=== PATIENT | male | born 1945 | race Caucasian/White ===

== ENCOUNTER 2018-09-08 18:29 | Inpatient (IN) | payer MEDICARE ==
[~2018-09-08] VITALS: Ht 175.3 cm; Wt 95.1 kg
[~2018-09-08 18:29] MED LIST: ASPI81CH PO; CALCA400CH PO; CALCIUM + D SO1 EACH PO; FURO20 PO; GLIP5 PO; Glucosamine H1500 MG PO; HYDCHL25 PO; METO50 PO; PANT40 PO; POTA10T PO; PROBIOTIC & AC1 EACH PO; SILD50TA PO; SIMV40 PO; UBID100 PO; VALS80 PO
[2018-09-08 19:59] LABS: BASOPHILS ABSOLUTE AUTO 0.06 K/mm3 (0.00-0.23); BASOPHILS PERCENT AUTO 1 % (0-2); EOSINOPHILS ABSOLUTE AUTO 0.22 K/mm3 (0.00-0.68); EOSINOPHILS PERCENT AUTO 3 % (0-6); Hematocrit 38.9 % (37.0-53.0); IMMATURE GRAN ABSOLUTE AUTO 0.02 K/mm3 (0.00-0.10); IMMATURE GRAN PERCENT AUTO 0 % (0-1); LYMPHOCYTES ABSOLUTE AUTO 1.46 K/mm3 (0.84-5.20); LYMPHOCYTES PERCENT AUTO 19 % (21-46); MONOCYTES ABSOLUTE AUTO 0.67 K/mm3 (0.16-1.47); MONOCYTES PERCENT AUTO 9 % (4-13); Mean Corpuscular HGB 29.9 pg (26.0-34.0); Mean Corpuscular HGB Conc 30.8 g/dL (31.5-36.5); Mean Platelet Volume 9.5 fL (9.1-12.4); NEUTROPHILS ABSOLUTE AUTO 5.34 K/mm3 (1.96-9.15); NEUTROPHILS PERCENT AUTO 69 % (41-73); Platelet Count 220 K/mm3 (150-400); RDW Coefficient Variation 13.5 % (11.7-14.2); RDW Standard Deviation 47.8 fL (35.1-46.3); Red Blood Cell Count 4.02 M/mm3 (4.30-5.90); White Blood Cell Count 7.77 K/mm3 (4.00-11.30)
[2018-09-08 20:02] LABS: Mean Corpuscular Volume 97 fL (80-100)
[2018-09-08 20:24] LABS: Alanine Aminotransfer (ALT/SGP 29 U/L (12-78); Albumin, Blood 3.4 g/dL (3.4-5.0); Alk Phos 85 U/L (50-136); Anion Gap 5 mmol/L (6-16); Aspartate Aminotrans (AST/SGOT 18 U/L (12-37); Bilirubin, Total 0.4 mg/dL (0.1-1.0); Blood Urea Nitrogen 14 mg/dL (8-24); Bun/Creatinine Ratio 11.2 (12.0-20.0); CO2, Blood 28 mmol/L (21-32); Calcium, Blood 8.7 mg/dL (8.5-10.1); Chloride, Blood 109 mmol/L (98-108); Creatinine, Blood 1.25 mg/dL (0.60-1.20); Globulin, Blood 3.5 g/dL (2.2-4.0); Glomerular Filtration Rate >60 (60-); Glucose, Blood 151 mg/dL (70-99); Potassium, Blood 4.2 mmol/L (3.5-5.5); Sodium, Blood 142 mmol/L (136-145); Total Protein, Blood 6.9 g/dL (6.4-8.2); Troponin I 0.107 ng/mL (0.000-0.040)
[2018-09-08] MEDS ORDERED: ELIQUIS2.5 MG PO (23:39)
[2018-09-08] MEDS ORDERED: ASPI325 PO (23:39)
[2018-09-08] MEDS ORDERED: OXYC5 PO (23:40)
[2018-09-08] MEDS ORDERED: Acidophilus La100 GM PO (23:41)
[2018-09-08] MEDS ORDERED: CALCIUM 600 +1 EAC1 PO (23:43)
[2018-09-08] MEDS ORDERED: Coq-10100 MG PO (23:43)
[2018-09-08] MEDS ORDERED: CALCIUM 500 +1 EAC2 PO (23:43)
[2018-09-08] MEDS ORDERED: GLUC500 PO (23:44)
[2018-09-09] MEDS ORDERED: GLIP5 PO (00:45)
--- NOTE | 2018-09-09 01:20 | NUR ---
Admission: Patient arrived to unit via stretcher, accompanied by ED nurse. Stood and transferred to bed without difficulty. Patient denies pain, discomfort, SOB, or dyspnea. A/O x4 VSS, O2- 95-98% on RA, heart rhythm shows 100% atrial pacing, rate-60. Patient was not able to tolerate lying flat, quickly became SOB, but also very quickly resolved when HOB elevated. Lungs sounds clear, 1-2+ edema noted in BLE. Spoke with Dr. Donnelly at this time, received order of one time dose of Lasix 20mg now. Call light in reach, instructed to not get out of bed without assistance. Peripheral IV to rt AC patent and intact. 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 Will continue to monitor for pain, comfort, safety.
--- NOTE | 2018-09-09 06:07 | NUR ---
Shift Summary: Patient slept well throughout shift, easily roused to verbal stimuli. Continues to deny pain, discomfort, SOB or dyspnea throughout shift. VSS, O2- 95-98% on RA. Heart rhythm showed a variety of Afibb, atrial pacing, ventricle pacing, and atrial/ventricle pacing. HR ranging from 60-90's. Voiding using urinal in bed without difficulty. Sleeping at this time, appears comfortable. Will continue to monitor until report to day shift RN.
[2018-09-09 08:19] LABS: Hematocrit 37.5 % (37.0-53.0); Hemoglobin 11.4 g/dL (13.5-17.5); Mean Corpuscular HGB 29.4 pg (26.0-34.0); Mean Corpuscular HGB Conc 30.4 g/dL (31.5-36.5); Mean Corpuscular Volume 97 fL (80-100); Mean Platelet Volume 9.7 fL (9.1-12.4); Platelet Count 187 K/mm3 (150-400); RDW Coefficient Variation 13.7 % (11.7-14.2); RDW Standard Deviation 47.6 fL (35.1-46.3); Red Blood Cell Count 3.88 M/mm3 (4.30-5.90); White Blood Cell Count 5.99 K/mm3 (4.00-11.30)
[2018-09-09 08:32] LABS: Calcium, Blood 8.5 mg/dL (8.5-10.1); Creatinine, Blood 1.4 mg/dL (0.60-1.20); Magnesium, Blood 2.4 mg/dL (1.6-2.4)
--- NOTE | 2018-09-09 09:34 | NUR ---
Recieved report from Jose PERDOMO. Patient was sleeping and was letting him rest. He is on RA and sats upper 90%. He has 20ga IV in RAC and dressing intact and site WNL's and i flushed and SL.
--- NOTE | 2018-09-09 09:37 | NUR ---
He awakened by lab and assessed patient. He tolerated breakfast 100% and continues on RA and VSS. Called [facility] and got name of brand pacer and will get interogated send results to [facility] as well. Echo in room currently doing procedure. He is alert and oriented and is good historian and states he just has been feeling tired and has overdone exertion several times with poor recovery. Physical therapy has been in room already and feel that he would benifet from [facility] cardiac therapy.
--- NOTE | 2018-09-09 11:05 | NUR ---
Echocardiogram completed.
--- NOTE | 2018-09-09 11:30 | NUR ---
Patients echo done. Pacer interogated, copy inchart and sent to [facility]. Notified Dr Singer that patient was in afib from [id number] per pacer rep. VSS. States he has been feeling fine all moprning. [facility] and they are not able to get hin in any sooner. Palliative care working on ther resouirces (Priscilla RN) which is in room currently. He is currently tolerating lunch currently. He denies any pain, SOB on RA or any other current needs.
--- NOTE | 2018-09-09 13:30 | NUR ---
No significant changes with patient. Called cardiology consult in to Dr Mijares Office. Patient has friends in room with him. He remains on RA and denies and pain or breathing difficulties. VSS.
--- NOTE | 2018-09-09 14:50 | NUR ---
Pt seen for plan of care. NO POLST or AD on file. FAX sent to [place] for POLST?AD and POA. Pt alert but anxious review of the eight domains of care with pt. He is stable financially has a partner in life that cares for him. He goes to gold team at [facility] for care. He needs a new pressure washer. PT review of systems. Pt has been having increased chronic headaches related to his tinnitus. He states it keeps him awake and effects his sleep. Pt states just before his cardiac care he went to dentist for a broken tooth on the upper right. The tooth was not fixable and was difficult to remove. Since the procedure he has lost more hearing on the right and some nerve pain to upper right face. She was scheduled to go to [facility] for MRI and to see if they could reduce his tinnitus and get him hearing aids that would help. He has displayed some significant stress from the hearing issues. He has had some episodes of nose running. He denies falls. He has taken CBD oil briefly in the past and some over the counter meds for his ears. He does not drink or smoke. pt state he has had trouble sleeping that he is having vivid dreams and they starle him awake. This has been going on since his surgery. He does not wear a bipap and denies snoring. He denies balance issue. but compains if dizziness and weakness wehn changing sfrom sitting to standing. He states he has had frequent changes to heis diuretic and cardiac meds. he denie nausea, appetite is minimal. He has some rare minimal constipation, no difficulty voiding. He has chronic low back pain and whith certain movement feels popping in his low back. He has had his back symptoms for quite some time. Review of social stress. He was tearfull his brother is dying of cancer and he wishes he could see him. He expressed significant grief. He has minimal relationships with his family he has a few ex wives. 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 We reviewed sleep hygiene, stress reduction and diversion. We reviewed non pharmacological care for pain and sleep. We reviewed funcation and care of the heart lungs and kidney function and fluid balance. review of fall precausions and balance. review with nursing. Pt states he has not had any CHF teaching. suggest homePT and CHF care we reviewed daily weights. pt on wait list for cardiac rehab. pt [facility] risk for readmission. Pt high risk for balance issue and injury due to hearing loss. Will update adult protective caseworker.
--- NOTE | 2018-09-09 14:53 | NUR ---
In person report to Kerri PERDOMO. Called family contact and Dr Horton and notified of room change. Took all personal belongings to room 312 prior to transfer and when occupational therapy done will take to room in wheelchair. Dr Newton in room with patien as he just arrived.
--- NOTE | 2018-09-09 17:37 | NUR ---
SHIFT SUMMARY PT XFER'D FROM ICU JUST BEFORE DINNER. WAS UNABLE TO TITRATE OFF OF O2, SATS 84 ON RA, 3L 02 VIA NC PLACED BACK ON WHEN XFERED TO FLOOR. PT HAS HAD NO ACUTE CHANGES, NO COMPLAINTS SINCE ASSUMING CARE, AT BEDSIDE, WILL CONT TO MONITOR UNTIL REPORT GIVEN TO NOC RN.
--- NOTE | 2018-09-09 17:41 | NUR ---
SHIFT SUMMARY PT WAS ICU XFER THIS SHIFT, REC REPORT FROM LEANNE CAZARES. PT HAS HAD NO ACUTE CHANGES SINCE ASSUMING CARE, NO COMPLAINTS OF ANY KIND. WILL CONT TO MONITOR UNTIL REPORT GIVEN TO SELAM PERDOMO.
--- NOTE | 2018-09-10 04:34 | NUR ---
SHIFT SUMMARY PT A&OX4. REPORTS MILD HEADACHE EARLY IN THE SHIFT. PAIN MEDS WAS GIVEN ANOTHER RN. DENIES N/V, CHEST PAIN, AND SOB. RESTED WELL. USED URINAL TO VOID. ENCOURAGED PT TO TURN AND REPOSITION SELF OFTEN WHILE IN BED. NO OTHER COMPLAINTS. WILL CONTINUE TO MONITOR.
[2018-09-10 04:54] LABS: BASOPHILS ABSOLUTE AUTO 0.08 K/mm3 (0.00-0.23); BASOPHILS PERCENT AUTO 1 % (0-2); EOSINOPHILS ABSOLUTE AUTO 0.24 K/mm3 (0.00-0.68); EOSINOPHILS PERCENT AUTO 4 % (0-6); Hematocrit 37.2 % (37.0-53.0); Hemoglobin 11.6 g/dL (13.5-17.5); IMMATURE GRAN ABSOLUTE AUTO 0.02 K/mm3 (0.00-0.10); IMMATURE GRAN PERCENT AUTO 0 % (0-1); LYMPHOCYTES ABSOLUTE AUTO 1.79 K/mm3 (0.84-5.20); LYMPHOCYTES PERCENT AUTO 27 % (21-46); MONOCYTES ABSOLUTE AUTO 0.58 K/mm3 (0.16-1.47); MONOCYTES PERCENT AUTO 9 % (4-13); Mean Corpuscular HGB 29.7 pg (26.0-34.0); Mean Corpuscular HGB Conc 31.2 g/dL (31.5-36.5); Mean Corpuscular Volume 95 fL (80-100); Mean Platelet Volume 9.6 fL (9.1-12.4); NEUTROPHILS ABSOLUTE AUTO 3.82 K/mm3 (1.96-9.15); NEUTROPHILS PERCENT AUTO 59 % (41-73); Platelet Count 173 K/mm3 (150-400); RDW Coefficient Variation 13.4 % (11.7-14.2); RDW Standard Deviation 46.7 fL (35.1-46.3); Red Blood Cell Count 3.91 M/mm3 (4.30-5.90); White Blood Cell Count 6.53 K/mm3 (4.00-11.30)
[2018-09-10 05:19] LABS: Anion Gap 5 mmol/L (6-16); Blood Urea Nitrogen 17 mg/dL (8-24); Bun/Creatinine Ratio 13.6 (12.0-20.0); CO2, Blood 28 mmol/L (21-32); Chloride, Blood 108 mmol/L (98-108); Creatinine, Blood 1.25 mg/dL (0.60-1.20); Glomerular Filtration Rate >60 (60-); Glucose, Blood 112 mg/dL (70-99); Potassium, Blood 3.9 mmol/L (3.5-5.5); Sodium, Blood 141 mmol/L (136-145)
--- NOTE | 2018-09-10 06:56 | NUR ---
PER SPOT WELDER MAXINE, PT HAD 6-7 RUNS OF PVC AT AROUND 0420 AND THEN 15-18 RUNS PER MINUTE. NOTIFIED DR. REINA. ORDERED MAGNESIUM TO BE CHECKED. PT WAS ASYMPTOMATIC. DENIES CP, SOB, AND N/V.
[2018-09-10 09:50] LABS: Magnesium, Blood 2.4 mg/dL (1.6-2.4)
[2018-09-10] MEDS ORDERED: FURO40 PO (13:04)
[2018-09-10] MEDS ORDERED: ACET325 PO (13:04)
[2018-09-10] MEDS ORDERED: METO50ER PO (13:05)
[2018-09-10] MEDS ORDERED: ONDA4ODT MM (13:06)
--- NOTE | 2018-09-10 15:43 | NUR ---
SHIFT SUMMARY/DC PT HAS HAD NO ACUTE CHANGES THIS SHIFT, NO COMPLAINTS OF ANY KIND. REVIEWED DC INSTRUCTIONS, PT VERBALIZED UNDERSTANDING. [facility] FOR REFERRLS. PT TRANSPORTED VIA W/C TO [facility] IN PRIVATE VEHICLE @ 1136.
== END 2018-09-10 14:57 | disposition home health service (06) | DRG 641 ==
LOC: ER 18:29 → MEDS 23:30 → ICUW 23:30 → ER 09-09 00:06 → ICUE 09-09 00:20 → MEDS 09-09 15:59 → ENPENDDIS 09-10 12:00 → MEDS 09-10 14:57
PROVIDERS: Emergency Medicine; Family Medicine; Nurse Practitioner Acute Care; ADMIT Family Medicine
DX: E87.70 Fluid overload, unspecified (principal); I10 Essential (primary) hypertension; E11.9 Type 2 diabetes mellitus without complications; K21.9 Gastro-esophageal reflux disease without esophagitis; E66.9 Obesity, unspecified; I48.2 Chronic atrial fibrillation; M45.9 Ankylosing spondylitis of unspecified sites in spine; I25.10 Atherosclerotic heart disease of native coronary artery without angina pectoris; Z95.1 Presence of aortocoronary bypass graft; Z95.0 Presence of cardiac pacemaker; Z87.891 Personal history of nicotine dependence; Z79.84 Long term (current) use of oral hypoglycemic drugs; Z79.02 Long term (current) use of antithrombotics/antiplatelets; Z79.82 Long term (current) use of aspirin; Z79.899 Other long term (current) drug therapy; Z68.31 Body mass index [BMI] 31.0-31.9, adult
CPT/HCPCS: 36415; 71046; 80048; 80053; 82947; 83735; 83880; 84145; 84443; 84484; 85025; 85027; 93005; 93010; 93308; 93321; 94761; 97162; 97165; 97530; 99285-25; J1940

== ENCOUNTER 2019-09-06 17:46 | Emergency (ER) | payer OTHER, MEDICARE ==
[~2019-09-06] VITALS: Ht 175.3 cm; Wt 93.0 kg
[~2019-09-06 17:46] MED LIST changes: +ACET325 PO; +Acidophilus La100 GM PO; +Aspirin EC81 MG PO; +CALCIUM 500 +1 EAC2 PO; +CALCIUM 600 +1 EAC1 PO; +Coq-10100 MG PO; +ELIQUIS2.5 MG PO; +FURO40 PO; +GLUC500 PO; +METO50ER PO; +ONDA4ODT MM; +OXYC5 PO
[2019-09-06 18:51] LABS: BASOPHILS ABSOLUTE AUTO 0.09 K/mm3 (0.00-0.23); BASOPHILS PERCENT AUTO 1 % (0-2); EOSINOPHILS ABSOLUTE AUTO 0.27 K/mm3 (0.00-0.68); EOSINOPHILS PERCENT AUTO 3 % (0-6); Hematocrit 46.8 % (37.0-53.0); IMMATURE GRAN ABSOLUTE AUTO 0.08 K/mm3 (0.00-0.10); IMMATURE GRAN PERCENT AUTO 1 % (0-1); LYMPHOCYTES ABSOLUTE AUTO 2.92 K/mm3 (0.84-5.20); LYMPHOCYTES PERCENT AUTO 32 % (21-46); MONOCYTES ABSOLUTE AUTO 0.83 K/mm3 (0.16-1.47); MONOCYTES PERCENT AUTO 9 % (4-13); Mean Corpuscular HGB 29.7 pg (26.0-34.0); Mean Corpuscular HGB Conc 32.1 g/dL (31.5-36.5); Mean Corpuscular Volume 93 fL (80-100); Mean Platelet Volume 10.8 fL (9.1-12.4); NEUTROPHILS ABSOLUTE AUTO 5.07 K/mm3 (1.96-9.15); NEUTROPHILS PERCENT AUTO 55 % (41-73); Platelet Count 142 K/mm3 (150-400); RDW Coefficient Variation 12.9 % (11.7-14.2); RDW Standard Deviation 43.8 fL (35.1-46.3); Red Blood Cell Count 5.05 M/mm3 (4.30-5.90); White Blood Cell Count 9.26 K/mm3 (4.00-11.30)
[2019-09-06 19:02] LABS: Alanine Aminotransfer (ALT/SGP 26 U/L (12-78); Albumin, Blood 3.7 g/dL (3.4-5.0); Alk Phos 110 U/L (50-136); Anion Gap 5 mmol/L (6-16); Aspartate Aminotrans (AST/SGOT 17 U/L (12-37); Bilirubin, Total 0.5 mg/dL (0.1-1.0); Blood Urea Nitrogen 11 mg/dL (8-24); Bun/Creatinine Ratio 9.7 (12.0-20.0); CO2, Blood 28 mmol/L (21-32); Chloride, Blood 108 mmol/L (98-108); Creatinine, Blood 1.13 mg/dL (0.60-1.20); Globulin, Blood 3.6 g/dL (2.2-4.0); Glomerular Filtration Rate >60 (60-); Glucose, Blood 110 mg/dL (70-99); Potassium, Blood 3.9 mmol/L (3.5-5.5); Sodium, Blood 141 mmol/L (136-145); Total Protein, Blood 7.3 g/dL (6.4-8.2); Troponin I <0.015 ng/mL (0.000-0.040)
[2019-09-06] MEDS ORDERED: GLIP5 PO (20:35)
[2019-09-06] MEDS ORDERED: Ultram50 MG PO (20:43)
== END 2019-09-06 21:09 | disposition home or self-care (01) ==
LOC: ER 17:46
PROVIDERS: Physician Assistant
DX: R07.89 Other chest pain (principal); I25.10 Atherosclerotic heart disease of native coronary artery without angina pectoris; E11.9 Type 2 diabetes mellitus without complications; K21.9 Gastro-esophageal reflux disease without esophagitis; I10 Essential (primary) hypertension; Z79.899 Other long term (current) drug therapy; Z79.84 Long term (current) use of oral hypoglycemic drugs; Z79.82 Long term (current) use of aspirin; Z79.01 Long term (current) use of anticoagulants
CPT/HCPCS: 36415; 71046; 80053; 84484; 85025; 93005; 93010; 99284-25

== ENCOUNTER 2019-10-30 23:02 | Emergency (ER) | payer OTHER, MEDICARE ==
[~2019-10-30] VITALS: Ht 175.3 cm; Wt 97.1 kg
[~2019-10-30 23:02] MED LIST changes: +Ultram50 MG PO
[2019-10-30 23:17] LABS: BASOPHILS ABSOLUTE AUTO 0.06 K/mm3 (0.00-0.23); BASOPHILS PERCENT AUTO 1 % (0-2); EOSINOPHILS PERCENT AUTO 1 % (0-6); Hematocrit 48.4 % (37.0-53.0); IMMATURE GRAN ABSOLUTE AUTO 0.07 K/mm3 (0.00-0.10); IMMATURE GRAN PERCENT AUTO 1 % (0-1); LYMPHOCYTES PERCENT AUTO 12 % (21-46); MONOCYTES ABSOLUTE AUTO 0.69 K/mm3 (0.16-1.47); MONOCYTES PERCENT AUTO 5 % (4-13); Mean Corpuscular HGB 30.4 pg (26.0-34.0); Mean Corpuscular HGB Conc 33.1 g/dL (31.5-36.5); Mean Corpuscular Volume 92 fL (80-100); Mean Platelet Volume 10.7 fL (9.1-12.4); NEUTROPHILS ABSOLUTE AUTO 10.75 K/mm3 (1.96-9.15); NEUTROPHILS PERCENT AUTO 81 % (41-73); Platelet Count 128 K/mm3 (150-400); RDW Coefficient Variation 12.8 % (11.7-14.2); RDW Standard Deviation 43.3 fL (35.1-46.3); Red Blood Cell Count 5.26 M/mm3 (4.30-5.90); White Blood Cell Count 13.27 K/mm3 (4.00-11.30)
[2019-10-30] MEDS ORDERED: THERA-D2000 UNIT PO (23:19)
[2019-10-30] MEDS ORDERED: ATOR20 PO (23:19)
[2019-10-30] MEDS ORDERED: SERT25 PO (23:20)
[2019-10-30 23:34] LABS: Troponin I <0.015 ng/mL (0.000-0.040)
[2019-10-30 23:35] LABS: Alanine Aminotransfer (ALT/SGP 24 U/L (12-78); Albumin, Blood 3.9 g/dL (3.4-5.0); Alk Phos 94 U/L (50-136); Anion Gap 6 mmol/L (6-16); Aspartate Aminotrans (AST/SGOT 16 U/L (12-37); Bilirubin, Total 0.8 mg/dL (0.1-1.0); Blood Urea Nitrogen 13 mg/dL (8-24); Bun/Creatinine Ratio 10.7 (12.0-20.0); CO2, Blood 28 mmol/L (21-32); Calcium, Blood 9.6 mg/dL (8.5-10.1); Chloride, Blood 107 mmol/L (98-108); Creatinine, Blood 1.21 mg/dL (0.60-1.20); Globulin, Blood 3.8 g/dL (2.2-4.0); Glomerular Filtration Rate >60 (60-); Glucose, Blood 183 mg/dL (70-99); Potassium, Blood 3.9 mmol/L (3.5-5.5); Sodium, Blood 141 mmol/L (136-145); Total Protein, Blood 7.7 g/dL (6.4-8.2)
== END 2019-10-31 01:33 | disposition home or self-care (01) ==
LOC: ER 23:02
PROVIDERS: Emergency Medicine
DX: N13.2 Hydronephrosis with renal and ureteral calculous obstruction (principal); E11.9 Type 2 diabetes mellitus without complications
CPT/HCPCS: 74176; 80053; 83690; 84484; 85025; 93005; 93010; 96374; 96375; 99284-25; A9270; J1885; J2405; J3010

== ENCOUNTER 2019-11-02 11:43 | Emergency (ER) | payer OTHER, MEDICARE ==
[~2019-11-02] VITALS: Ht 175.3 cm; Wt 97.5 kg
[~2019-11-02 11:43] MED LIST changes: +ATOR20 PO; +SERT25 PO; +THERA-D2000 UNIT PO
[2019-11-02 12:19] LABS: BASOPHILS ABSOLUTE AUTO 0.05 K/mm3 (0.00-0.23); BASOPHILS PERCENT AUTO 1 % (0-2); EOSINOPHILS ABSOLUTE AUTO 0.08 K/mm3 (0.00-0.68); EOSINOPHILS PERCENT AUTO 1 % (0-6); Hematocrit 45.8 % (37.0-53.0); Hemoglobin 15.2 g/dL (13.5-17.5); IMMATURE GRAN ABSOLUTE AUTO 0.03 K/mm3 (0.00-0.10); IMMATURE GRAN PERCENT AUTO 0 % (0-1); LYMPHOCYTES ABSOLUTE AUTO 1.25 K/mm3 (0.84-5.20); LYMPHOCYTES PERCENT AUTO 13 % (21-46); MONOCYTES PERCENT AUTO 6 % (4-13); Mean Corpuscular HGB 30.5 pg (26.0-34.0); Mean Corpuscular HGB Conc 33.2 g/dL (31.5-36.5); Mean Corpuscular Volume 92 fL (80-100); NEUTROPHILS ABSOLUTE AUTO 7.47 K/mm3 (1.96-9.15); NEUTROPHILS PERCENT AUTO 79 % (41-73); Platelet Count 112 K/mm3 (150-400); RDW Coefficient Variation 12.8 % (11.7-14.2); RDW Standard Deviation 43.3 fL (35.1-46.3); Red Blood Cell Count 4.98 M/mm3 (4.30-5.90); White Blood Cell Count 9.48 K/mm3 (4.00-11.30)
[2019-11-02 12:28] LABS: Source, Urine Clean Catch
[2019-11-02 12:28] LABS: Albumin, Blood 3.8 g/dL (3.4-5.0); Albumin/Globulin Ratio 1.1 (0.8-1.8); Bilirubin, Total 1.1 mg/dL (0.1-1.0); Bun/Creatinine Ratio 12.5 (12.0-20.0); Creatinine, Blood 1.36 mg/dL (0.60-1.20); Globulin, Blood 3.4 g/dL (2.2-4.0); Potassium, Blood 4.1 mmol/L (3.5-5.5); Total Protein, Blood 7.2 g/dL (6.4-8.2)
[2019-11-02 12:36] LABS: Bilirubin, Urine Neg (Neg); Blood, Urine 5+ (Neg); Glucose Qualitative, Urine Neg (Neg); Ketones, Urine 2+ (Neg); Leukocyte Esterase, Urine 1+ (Neg); Nitrite, Urine Neg (Neg); Protein, Urine 1+ (Neg); Urobilinogen, Urine 2+ (Normal)
[2019-11-02 12:51] LABS: Appearance, Urine Hazy (Clear); Color, Urine Yellow (P-Yellow)
[2019-11-02 12:53] LABS: Red Blood Cells, Urine TNTC /hpf (0-2)
[2019-11-02 12:54] LABS: Bacteria Few /hpf; Squamous Epithelial Cells Few /hpf (Few)
[2019-11-02 12:55] LABS: Calcium Oxalate Crystals Rare /hpf
[2019-11-02] MEDS ORDERED: Percocet 5-3251 EACH PO (13:15)
[2019-11-02] MEDS ORDERED: ONDA4ODT MM (13:15)
== END 2019-11-02 19:01 | disposition home or self-care (01) ==
LOC: ER 11:43
PROVIDERS: Physician Assistant
DX: N20.0 Calculus of kidney (principal); I25.810 Atherosclerosis of coronary artery bypass graft(s) without angina pectoris; E11.9 Type 2 diabetes mellitus without complications; I10 Essential (primary) hypertension; K21.9 Gastro-esophageal reflux disease without esophagitis; Z79.899 Other long term (current) drug therapy
CPT/HCPCS: 36415; 80053; 81001; 85025; 87086; 96374; 96375; 99284-25; J1170; J2405

== ENCOUNTER 2022-03-30 11:57 | Day surgery (SDC) | payer OTHER ==
[~2022-03-30] VITALS: Ht 175.3 cm; Wt 87.5 kg
[~2022-03-30 11:57] MED LIST changes: +Percocet 5-3251 EACH PO
== END 2022-03-30 13:59 | disposition home or self-care (01) ==
LOC: ORSCSDS 11:57
PROVIDERS: Student in an Organized Health Care Education/Training Program
PROC: 0DBH8ZX Excision of Cecum, Via Natural or Artificial Opening Endoscopic, Diagnostic (ICD-10-PCS; principal; 2022-03-30 13:15)
PROC: 0DBM8ZX Excision of Descending Colon, Via Natural or Artificial Opening Endoscopic, Diagnostic (ICD-10-PCS; principal; 2022-03-30 13:15)
PROC: 0DBN8ZX Excision of Sigmoid Colon, Via Natural or Artificial Opening Endoscopic, Diagnostic (ICD-10-PCS; principal; 2022-03-30 13:15)
DX: Z12.11 Encounter for screening for malignant neoplasm of colon (principal); Z86.010 Personal history of colon polyps; Z80.0 Family history of malignant neoplasm of digestive organs; D12.0 Benign neoplasm of cecum; K63.5 Polyp of colon; K52.9 Noninfective gastroenteritis and colitis, unspecified; K57.30 Diverticulosis of large intestine without perforation or abscess without bleeding; K64.8 Other hemorrhoids; Z95.0 Presence of cardiac pacemaker; I48.91 Unspecified atrial fibrillation; Z79.01 Long term (current) use of anticoagulants; G47.33 Obstructive sleep apnea (adult) (pediatric); K21.9 Gastro-esophageal reflux disease without esophagitis; I25.10 Atherosclerotic heart disease of native coronary artery without angina pectoris; E11.9 Type 2 diabetes mellitus without complications; E78.5 Hyperlipidemia, unspecified; E03.9 Hypothyroidism, unspecified; Z79.84 Long term (current) use of oral hypoglycemic drugs; Z79.899 Other long term (current) drug therapy
CPT/HCPCS: 82947; 88305; J2704; J7120

== ENCOUNTER 2025-08-04 13:24 | Emergency (ER) | payer OTHER ==
[~2025-08-04] VITALS: Ht 175.3 cm; Wt 86.2 kg
[2025-08-04 13:58] LABS: BASOPHILS ABSOLUTE AUTO 0.06 K/mm3 (0.00-0.23); BASOPHILS PERCENT AUTO 1 % (0-2); EOSINOPHILS ABSOLUTE AUTO 0.19 K/mm3 (0.00-0.68); EOSINOPHILS PERCENT AUTO 2 % (0-6); Hematocrit 48.0 % (37.0-53.0); Hemoglobin 16.1 g/dL (13.5-17.5); IMMATURE GRAN ABSOLUTE AUTO 0.05 K/mm3 (0.00-0.10); IMMATURE GRAN PERCENT AUTO 1 % (0-1); LYMPHOCYTES ABSOLUTE AUTO 2.92 K/mm3 (0.84-5.20); LYMPHOCYTES PERCENT AUTO 31 % (21-46); MONOCYTES ABSOLUTE AUTO 0.74 K/mm3 (0.16-1.47); MONOCYTES PERCENT AUTO 8 % (4-13); Mean Corpuscular HGB Conc 33.5 g/dL (31.5-36.5); Mean Corpuscular Volume 93 fL (80-100); NEUTROPHILS ABSOLUTE AUTO 5.48 K/mm3 (1.96-9.15); NEUTROPHILS PERCENT AUTO 58 % (41-73); NRBC ABSOLUTE 0.00 K/mm3 (0.00-0.02); NRBC Auto 0.0 /100 WBC (0.0-0.2); Platelet Count 120 K/mm3 (150-400); RDW Coefficient Variation 12.5 % (11.7-14.2); RDW Standard Deviation 42.7 fL (35.1-46.3)
[2025-08-04 14:18] LABS: Alanine Aminotransfer (ALT/SGP 29.0 U/L (12-78); Albumin, Blood 3.7 g/dL (3.4-5.0); Albumin/Globulin Ratio 1.0 (0.8-1.8); Anion Gap 8.0 mmol/L (3-11); Aspartate Aminotrans (AST/SGOT 17.0 U/L (12-37); Bilirubin, Total 0.8 mg/dL (0.1-1.0); Blood Urea Nitrogen 20.0 mg/dL (8-24); CO2, Blood 25.0 mmol/L (21-32); Calcium, Blood 9.1 mg/dL (8.5-10.1); Chloride, Blood 108.0 mmol/L (98-108); Creatinine, Blood 1.32 mg/dL (0.60-1.20); Globulin, Blood 3.7 g/dL (2.2-4.0); Glucose, Blood 221.0 mg/dL (70-99); Potassium, Blood 4.4 mmol/L (3.5-5.5); Sodium, Blood 137.0 mmol/L (136-145); Total Protein, Blood 7.4 g/dL (6.4-8.2)
[2025-08-04 16:38] VITALS: BP 133/82
[2025-08-04] MEDS ORDERED: ACET500 PO (17:52)
== END 2025-08-04 18:08 | disposition home or self-care (01) ==
LOC: ER 13:24
PROVIDERS: Student in an Organized Health Care Education/Training Program
DX: R07.2 Precordial pain (principal); E11.9 Type 2 diabetes mellitus without complications; I48.91 Unspecified atrial fibrillation; Z95.0 Presence of cardiac pacemaker; Z79.01 Long term (current) use of anticoagulants
CPT/HCPCS: 71046; 80053; 83690; 84484; 85025; 93005; 93010; 99285-25